=== PATIENT | female | born 1985 | race African-American/Black ===

== ENCOUNTER → 2016-04-09 | Outpatient (CLI) | payer OTHER ==
[2016-04-09 10:03] LABS: MEAN CORPUSCULAR HEMOGLOBIN 28.9 pg (27.0-33.0); MEAN CORPUSCULAR HGB CONC 32.2 g/dl (32.0-36.5); MEAN CORPUSCULAR VOLUME 89.7 fl (80.0-96.0); RED CELL DISTRIBUTION WIDTH 13.4 % (11.5-14.5); WHITE BLOOD COUNT 6.2 K/mm3 (4.0-10.0)
[2016-04-09 10:30] LABS: ALBUMIN 3.6 GM/DL (3.2-5.2); ALBUMIN/GLOBULIN RATIO 1.16 (1.00-1.93); ALKALINE PHOSPHATASE 94 U/L (45-117); ALT/SGPT 34 U/L (12-78); ANION GAP 7 MEQ/L (8-16); AST/SGOT 25 U/L (15-37); BILIRUBIN,DIRECT 0.1 MG/DL (0.0-0.2); BILIRUBIN,TOTAL 0.3 MG/DL (0.2-1.0); BLOOD UREA NITROGEN 10 MG/DL (7-18); CALCIUM LEVEL 8.5 MG/DL (8.5-10.1); CARBON DIOXIDE LEVEL 26 MEQ/L (21-32); CHLORIDE LEVEL 109 MEQ/L (98-107); CREATININE FOR GFR 0.73 MG/DL (0.55-1.02); GLOMERULAR FILTRATION RATE > 60.0 (>60); GLUCOSE, FASTING 80 MG/DL (70-105); PHOSPHORUS LEVEL 3.7 MG/DL (2.5-4.9); SODIUM LEVEL 142 MEQ/L (136-145); TOTAL PROTEIN 6.7 GM/DL (6.4-8.2)
== END ==
LOC: M LAB 09:25
PROVIDERS: ATTEND Podiatrist Foot & Ankle Surgery
DX: B35.1 Tinea unguium (principal); Z79.899 Other long term (current) drug therapy

== ENCOUNTER → 2016-04-12 | Outpatient (REF) | payer OTHER ==
[2016-04-12 18:20] LABS: PERCENT SATURATION 20.4 % (13.2-37.4)
== END ==
LOC: M LAB REF 17:00
PROVIDERS: ATTEND Internal Medicine Medical Oncology
DX: D50.9 Iron deficiency anemia, unspecified (principal)

== ENCOUNTER → 2016-04-15 | Outpatient (CLI) | payer OTHER ==
[~2016-04-15] MED LIST: CLAR10CA3 PO; CLON0.5T PO; CVS20TAB PO; HYDR200T3 PO; OXAY1TAB PO; TERB250T57 PO; VITA100054 PO; VITATAB11 PO; ZYPR5TAB2 PO
== END ==
LOC: M LAB 08:48
PROVIDERS: ATTEND Internal Medicine Gastroenterology
DX: R19.7 Diarrhea, unspecified (principal)

== ENCOUNTER → 2016-04-17 | Outpatient (REF) | payer OTHER | LOC: M LAB REF 11:00 | PROVIDERS: ATTEND Internal Medicine Gastroenterology | DX: R19.7 Diarrhea, unspecified (principal) ==

== ENCOUNTER → 2016-06-01 | Outpatient (REF) | payer OTHER | LOC: M LAB REF 17:51 | PROVIDERS: ATTEND Internal Medicine Medical Oncology | DX: D50.9 Iron deficiency anemia, unspecified (principal) ==

== ENCOUNTER → 2016-07-20 | Outpatient (REF) | payer OTHER ==
[2016-07-20 13:43] LABS: PERCENT SATURATION 25.4 % (13.2-37.4)
== END ==
LOC: M LAB REF 12:54
PROVIDERS: ATTEND Internal Medicine Medical Oncology
DX: D50.9 Iron deficiency anemia, unspecified (principal)